=== PATIENT | female | born 1975 | race Caucasian/White ===

== ENCOUNTER 2018-09-26 12:20 | Outpatient (CLI) | payer MEDICAID | END 2018-09-26 14:55 | disposition left against medical advice (07) | LOC: OBT 12:20 → L-D 12:20 → OBT 14:55 | DX: Z53.21 Procedure and treatment not carried out due to patient leaving prior to being seen by health care provider (principal) | CPT/HCPCS: 76818 ==

== ENCOUNTER 2018-09-27 05:02 | Inpatient (IN) | payer MEDICAID ==
[2018-09-27] MEDS: AMPICILLIN 2 GM/NS (PMX) 100 ML IV (05:29)
[2018-09-27] MEDS ORDERED: MISOPROSTOL 200 MCG TAB PR ×2 (05:30→07:00)
[2018-09-27] MEDS: LACTATED RINGER'S 1,000 ML IV (05:30)
[2018-09-27] MEDS ORDERED: BUTORPHANOL 2 MG INJ IV (05:30)
[2018-09-27] MEDS ORDERED: OXYTOCIN 30 UNITS/LR 500 ML IV ×2 (05:30→07:00)
[2018-09-27] MEDS ORDERED: LIDOCAINE 1% (MPF) 30 ML INJ INJ (05:30)
[2018-09-27] MEDS ORDERED: METHYLERGONOVINE 0.2 MG INJ IM ×2 (05:30→07:00)
[2018-09-27] MEDS ORDERED: CARBOPROST 250 MCG INJ IM ×2 (05:30→07:00)
[2018-09-27 05:45] LABS: ADD MAN DIFF? NO
[2018-09-27 05:49] LABS: BASOPHILS % 0.4 % (0.0-2.0); EOSINOPHILS % 0.4 % (0.0-7.0); HEMATOCRIT 40.3 % (37.0-47.0); HEMOGLOBIN 13.5 g/dl (12.0-16.0); LYMPHOCYTES # 2.2 10^3/ul (0.8-2.9); LYMPHOCYTES % 21.2 % (15.0-51.0); MEAN CORPUSCULAR HEMOGLOBIN 29.9 pg (29.0-33.0); MEAN CORPUSCULAR HGB CONC 33.5 g/dl (32.0-37.0); MEAN CORPUSCULAR VOLUME 89.4 fl (82.0-101.0); MEAN PLATELET VOLUME 10.5 fl (7.4-10.4); MONOCYTE # 0.6 10^3/ul (0.3-0.9); NEUTROPHIL # 7.6 10^3/ul (1.6-7.5); NEUTROPHILS % 71.6 % (39.0-77.0); PLATELET COUNT 315 10^3/UL (140-415); RED BLOOD COUNT 4.51 10^6/ul (4.20-5.40); RED CELL DISTRIBUTION WIDTH 14.3 % (11.5-14.5)
[2018-09-27 05:49] LABS: WHITE BLOOD COUNT 10.6 10^3/ul (4.8-10.8)
[2018-09-27 06:09] LABS: INR 0.93; PROTIME 12.5 Sec (11.9-14.9)
[2018-09-27 06:10] LABS: PARTIAL THROMBOPLASTIN TIME 30.6 Sec (23.0-35.0)
[2018-09-27] MEDS: OXYTOCIN 30 UNITS/LR 500 ML IV ×2 (06:26→06:28)
[2018-09-27] MEDS ORDERED: DIPHENHYDRAMINE 50 MG INJ IV (07:00)
[2018-09-27] MEDS ORDERED: ONDANSETRON 4 MG INJ IV (07:00)
[2018-09-27] MEDS ORDERED: OXYCODONE/ASPIRIN (4.88/325) TAB PO (07:00)
[2018-09-27] MEDS ORDERED: ZOLPIDEM 5 MG TAB PO (07:00)
[2018-09-27] MEDS ORDERED: ACETAMINOPHEN 325 MG TAB PO (07:00)
[2018-09-27] MEDS ORDERED: DIBUCAINE 1% 30 GM OINT TOP (07:00)
[2018-09-27] MEDS ORDERED: IBUPROFEN 600 MG TAB (07:51)
[2018-09-27] MEDS: IBUPROFEN 600 MG TAB PO ×3 (07:54→17:57)
[2018-09-27 08:26] LABS: HEPATITIS B SURFACE ANTIGEN NEGATIVE (NEGATIVE)
[2018-09-27] MEDS: LACTATED RINGER'S 1,000 ML IV* (09:00)
[2018-09-27] MEDS: BENZOCAINE 20% 56 ML SPRAY TOP (09:24)
[2018-09-27] MEDS: WITCH HAZEL/GLYCERIN PAD PR (09:24)
[2018-09-27] MEDS: LANOLIN HPA 1 PKT TOP (09:24)
[2018-09-27] MEDS: SENNA/DOCUSATE NA (8.6MG/50MG) TAB PO (09:25)
[2018-09-27] MEDS ORDERED: AMPICILLIN 1 GM/NS (PMX) 50 ML IV (09:30)
[2018-09-27] MEDS: DEXTROSE 5%-LR 1,000 ML IV (10:19)
[2018-09-27 15:22] LABS: RAPID PLASMA REAGIN NONREACTIVE (NR)
[2018-09-28] MEDS: IBUPROFEN 600 MG TAB PO ×4 (00:16→17:51)
[2018-09-28] MEDS: LANOLIN HPA 1 PKT TOP (00:16)
[2018-09-28 07:15] LABS: ADD MAN DIFF? NO
[2018-09-28 07:21] LABS: WHITE BLOOD COUNT 7.5 10^3/ul (4.8-10.8)
[2018-09-28 07:21] LABS: BASOPHILS % 0.4 % (0.0-2.0); EOSINOPHILS # 0.1 10^3/ul (0.0-0.5); EOSINOPHILS % 0.7 % (0.0-7.0); HEMATOCRIT 32.5 % (37.0-47.0); HEMOGLOBIN 10.8 g/dl (12.0-16.0); LYMPHOCYTES # 1.8 10^3/ul (0.8-2.9); LYMPHOCYTES % 24.3 % (15.0-51.0); MEAN CORPUSCULAR HEMOGLOBIN 30.1 pg (29.0-33.0); MEAN CORPUSCULAR HGB CONC 33.2 g/dl (32.0-37.0); MEAN CORPUSCULAR VOLUME 90.5 fl (82.0-101.0); MEAN PLATELET VOLUME 10.4 fl (7.4-10.4); MONOCYTE # 0.6 10^3/ul (0.3-0.9); MONOCYTES % 8.4 % (0.0-11.0); NEUTROPHILS % 65.8 % (39.0-77.0); PLATELET COUNT 242 10^3/UL (140-415); RED BLOOD COUNT 3.59 10^6/ul (4.20-5.40); RED CELL DISTRIBUTION WIDTH 14.4 % (11.5-14.5)
[2018-09-29] MEDS: IBUPROFEN 600 MG TAB PO ×3 (00:12→11:51)
[2018-09-29] MEDS: SENNA/DOCUSATE NA (8.6MG/50MG) TAB PO (00:12)
[2018-09-29] MEDS: DIPHTH/TET/ACEL PERTUSS (ADULT) 0.5 ML VIAL IM* (09:00)
[2018-09-29] MEDS: MEASLES,MUMPS,RUBELLA VACCINE INJ SC* (09:00)
== END 2018-09-29 13:50 | disposition home or self-care (01) | DRG 807 ==
LOC: OBT 05:02 → L-D 05:04 → OBT 05:05 → L-D 05:05 → PP1 08:29
PROVIDERS: Obstetrics & Gynecology
PROC: 10E0XZZ Delivery of Products of Conception, External Approach (ICD-10-PCS; principal; 2018-09-27)
DX: O80 Encounter for full-term uncomplicated delivery (principal); Z37.0 Single live birth; Z3A.38 38 weeks gestation of pregnancy
CPT/HCPCS: 85025; 85610; 85730; 86592; 86850; 86900; 86901; 87340